=== PATIENT | female | born 1955 | race Native Hawaiian/Other Pacific Islander ===

== ENCOUNTER 2017-06-17 10:07 | Outpatient (CLI) | payer BC ==
[2017-06-17 11:06] LABS: PLATELET COUNT 224 K/uL (152-353)
[2017-06-17 11:33] LABS: POTASSIUM 3.7 mmol/L (3.6-5.2); SODIUM 134 mmol/L (136-145)
== END 2017-06-17 13:00 | disposition home or self-care (01) ==
LOC: INF 10:07
PROVIDERS: Emergency Medicine
DX: N10 Acute pyelonephritis (principal); R10.84 Generalized abdominal pain
CPT/HCPCS: 80053; 85027; 87040; 87088; 87205; 96361; 96365; 96375; J0696; J1885

== ENCOUNTER 2017-07-09 11:52 | Outpatient (CLI) | payer BC ==
[2017-07-09 12:25] LABS: POTASSIUM 3.3 mmol/L (3.6-5.2); SODIUM 137 mmol/L (136-145)
== END 2017-07-09 19:03 | disposition home or self-care (01) ==
LOC: LABW 11:52
PROVIDERS: Surgery
DX: N64.52 Nipple discharge (principal)
CPT/HCPCS: 36415; 80048

== ENCOUNTER 2018-04-03 10:11 | Outpatient (CLI) | payer BC | END 2018-04-03 23:30 | disposition home or self-care (01) | LOC: RAD 10:11 | DX: Z13.820 Encounter for screening for osteoporosis (principal) ==

== ENCOUNTER 2021-08-03 08:14 | Outpatient (CLI) | payer OTHER ==
[~2021-08-03] VITALS: Ht 165.1 cm; Wt 92.5 kg
== END 2021-08-03 20:09 | disposition home or self-care (01) ==
LOC: NM 08:14
PROVIDERS: ATTEND Internal Medicine Cardiovascular Disease
DX: Z01.818 Encounter for other preprocedural examination (principal); I25.10 Atherosclerotic heart disease of native coronary artery without angina pectoris
CPT/HCPCS: A9500; J2785